=== PATIENT | female | born 1950 | race American Indian/Alaskan Native ===

== ENCOUNTER 2020-10-15 20:42 | Inpatient (IN) | payer OTHER ==
[2020-10-15 21:24] LABS: Absolute Lymphocytes (CBC) 1.5 K/uL (0.7-4.9); Basophils % 0.4 % (0-1.3); Hematocrit 29.8 % (36.0-45.0); Lymphocytes % 17.1 % (15.3-44.8); MPV 7.8 fL (7.6-11.3); RBC Red Blood Cell Count 3.26 M/uL (3.86-4.86)
[2020-10-15 21:27] LABS: Protime INR 1.02
--- NOTE | 2020-10-15 21:34 | RAD REPORT ---
EXAM DESCRIPTION: RAD - Chest Single View - 10/15/2020 9:29 pm CLINICAL HISTORY: Chest pain;SOB Chest pain. COMPARISON: No comparisons FINDINGS: Portable technique limits examination quality. Mild interstitial pulmonary edema noted, greater on the left. The heart is moderately enlarged. No di splaced fractures. IMPRESSION: Mild CHF suspected.
[2020-10-15 21:40] LABS: ALT/SGPT 26 U/L (12-78); AST/SGOT 31 U/L (15-37); Albumin 3.7 g/dL (3.4-5.0); Alkaline Phosphatase 65 U/L (45-117); BUN Blood Urea Nitrogen 39 mg/dL (7-18); Bicarbonate 24 mmol/L (21-32); Bilirubin Direct 0.1 mg/dL (0-0.2); Bilirubin Total 0.4 mg/dL (0.2-1.0); Glucose Level 175 mg/dL (74-106); Magnesium 2.7 mg/dL (1.8-2.4); NT PRO-BNP 7151 pg/mL (<125); Potassium 4.8 mmol/L (3.5-5.1); Protein, Total 8.4 g/dL (6.4-8.2); Sodium Level 135 mmol/L (136-145); Troponin (Emerg Dept Use Only) 0.19 ng/mL (0.0-0.045)
[2020-10-15 21:42] LABS: C-Reactive Protein < 2.90 mg/L (<3.00)
[2020-10-15 22:11] LABS: SARS-COV-2 RT PCR NEGATIVE (NEGATIVE)
[2020-10-15 22:17] LABS: Urine Blood TRACE (NEG); Urine Glucose NEGATIVE (NEG); Urine Protein 1+ (NEG)
--- NOTE | 2020-10-15 22:19 | EDPHYS ---
Physician Documentation [facility] Name: Dillon Rodriguez Age: 70 yrs Sex: Female : 1950 Arrival Date: 10/15/2020 Time: 20:43 Bed 17 Private MD: ED Physician Deejay Rosen HPI: 10/15 21:15 This 70 yrs old Other Female presents to ER via EMS with complaints of Shortness Of cp Breath. 21:15 The patient has shortness of breath at rest. cp 21:15 Onset: The symptoms/episode began/occurred today. cp 21:15 Duration: The symptoms are continuous, and are steadily getting worse. Associated signs cp and symptoms: Pertinent positives: chest pain, syncopal episode. Patient reports she started having chest pain today about 1730 while at home. Reports while walking to garage, she lost consciousness and awoke on ground. Patient unsure of length of time she was unconscious. Patient reports continued chest pain. Historical: - Allergies: 23:05 Fish Oil; sf - Home Meds: 23:05 Glipizide Oral [Active]; losartan oral oral [Active]; Simvastatin Oral [Active]; sf 23:15 Toujeo SoloStar subcutaneous subcutaneous [Active]; Tradjenta oral oral [Active]; sf - PMHx: 23:05 Anxiety; Hypertension; Diabetes - IDDM; sf - Social history:: Patient/guardian denies using alcohol, street drugs, tobacco products, Smoking status: Patient denies any tobacco usage or history of. ROS: 21:20 Constitutional: Negative for body aches, chills, fever, poor PO intake. cp 21:20 Eyes: Negative for injury, pain, redness, and discharge. cp 21:20 ENT: Negative for ear pain, sore throat, difficulty swallowing, difficulty handling secretions. 21:20 Cardiovascular: Positive for chest pain, Negative for edema, palpitations. 21:20 Respiratory: Positive for cough, "sounds productive", shortness of breath, at rest. 21:20 Abdomen/GI: Negative for abdominal pain, nausea, vomiting, and diarrhea, constipation, black/tarry stool, rectal bleeding. 21:20 Back: Negative for pain at rest, pain with movement. 21:20 Neuro: Positive for syncope, Negative for altered mental status, headache, weakness. 21:20 All other systems are negative. Exam: 21:07 ECG was reviewed by the Attending Physician. cp 21:25 Constitutional: The patient appears alert, awake, non-diaphoretic, non-toxic, well cp developed, well nourished, in obvious distress, mildly distressed. 21:25 Head/Face: Normocephalic, atraumatic. cp 21:25 Eyes: Periorbital structures: appear normal, Pupils: equal, round, and reactive to light and accomodation, Extraocular movements: intact throughout, Conjunctiva: normal, no exudate, no injection, Sclera: no appreciated abnormality, Lids and lashes: appear normal, bilaterally. 21:25 ENT: External ear(s): are unremarkable, Nose: is normal, Mouth: Lips: moist, Oral mucosa: moist, Posterior pharynx: Airway: no evidence of obstruction, patent. 21:25 Neck: C-spine: vertebral tenderness, is not appreciated, crepitus, is not appreciated. 21:25 Chest/axilla: Inspection: normal, Palpation: is normal, no crepitus, no tenderness. 21:25 Cardiovascular: Rate: normal, Rhythm: regular, Pulses: Pulses are 2+ in right radial artery and left radial artery. Edema: is not appreciated, JVD: is not appreciated. 21:25 Respiratory: the patient does not display signs of respiratory distress, Respirations: labored breathing, that is mild, intercostal retractions, are absent, shallow respirations, that is mild, Breath sounds: rales, that are mild, are heard diffusely, stridor, is not appreciated, wheezing: is not appreciated. 21:25 Abdomen/GI: Inspection: abdomen appears normal, Bowel sounds: active, all quadrants, Palpation: abdomen is soft and non-tender, in all quadrants. 21:25 Back: pain, is absent, ROM is normal. 21:25 Musculoskeletal/extremity: Exam is negative for decreased range of motion, deformity, injury. 21:25 Skin: no rash present. 21:25 Neuro: Orientation: to person, place \\T\\ time. Mentation: is normal, Cerebellar function: is grossly normal, Motor: moves all fours, strength is normal, Sensation: is normal. Vital Signs: 20:46 BP 154 / 99 Supine (auto/); Pulse 78 MON; Resp 22 S; Temp 98.7(O); Pulse Ox 90% on 4 sf lpm NC; 22:00 BP 135 / 73; Pulse 75; Resp 20; Pulse Ox 99% ; sf 22:40 Weight 72.12 kg (R); Height 5 ft. 4 in. (162.56 cm) (R); sf 23:30 BP 112 / 64; Pulse 67; Resp 20; Pulse Ox 100% ; sf 10/16 00:30 BP 105 / 59; Pulse 69; Resp 20; Pulse Ox 100% ; sf 01:00 BP 111 / 57; Pulse 67; Resp 20; Pulse Ox 100% 2 lpm ; sf 01:30 BP 118 / 70; Pulse 75; Resp 20; Pulse Ox 99% on 2 lpm NC; sf 02:30 BP 100 / 63; Pulse 57; Resp 18; Pulse Ox 100% ; sf 10/15 22:40 Body Mass Index 27.29 (72.12 kg, 162.56 cm) sf 02:30 sleeping sf MDM: 10/15 20:58 Patient medically screened. [facility] 22:30 Data reviewed: vital signs, nurses notes, lab test result(s), EKG, radiologic studies, cp plain films, I have discussed the patient's presentation/case with the attending Emergency Department Physician; and as a result, I will admit patient. 22:30 Test interpretation: by ED physician or midlevel provider: ECG, plain radiologic cp studies. Counseling: I had a detailed discussion with the patient and/or guardian regarding: the historical points, exam findings, and any diagnostic results supporting the discharge/admit diagnosis, lab results, radiology results, the need for further work-up and treatment in the hospital. Physician consultation: Eze HA was contacted at 22:30, regarding admission, to the telemetry unit. patient's condition, and will see patient in ED, shortly. 10/15 21:05 Order name: COVID-19 : Document "Date of Symptom Onset" if Symptomatic. 10/15 21:05 Order name: Basic Metabolic Panel; Complete Time: 21:43 cp 10/15 21:43 Interpretation: Normal except: NA 135; GLUC 175; BUN 39; CRE 1.80; GFR 28. cp 10/15 21:05 Order name: CBC with Diff; Complete Time: 21:41 cp 10/15 21:45 Interpretation: Normal except: RBC 3.26; HGB 10.2; HCT 29.8; NIA% 77.2. cp 02/ 21:05 Order name: LFT's; Complete Time: 21:43 cp / 21:05 Order name: Magnesium; Complete Time: 21:43 cp 10/15 21:05 Order name: NT PRO-BNP; Complete Time: 21:43 cp 10/15 21:05 Order name: PT-INR; Complete Time: 21:41 cp 10/15 21:05 Order name: Troponin (emerg Dept Use Only); Complete Time: 21:43 cp / 21:47 Interpretation: Abnormal: TROPED 0.19. cp / 21:05 Order name: CRP; Complete Time: 21:43 cp 10/15 21:05 Order name: Ferritin; Complete Time: 21:43 cp / 21:05 Order name: D-Dimer; Complete Time: 21:41 cp 10/15 21:05 Order name: Urine Microscopic Only; Complete Time: 22:40 cp 10/15 21:06 Order name: ABG; Complete Time: 04:39 cp / 22:08 Order name: Urine Dipstick--Ancillary (enter results) mw2 10/15 22:09 Order name: Urine Dipstick-Ancillary; Complete Time: 01:02 EDMS 10/15 22:11 Order name: COVID-19/FLU A+B EDMS 10/15 22:30 Order name: Urine Culture EDMS 10/16 05:02 Order name: CBC with Automated Diff EDMS 10/16 05:15 Order name: Troponin I EDMS 10/16 05:45 Order name: Comprehensive Metabolic Panel EDMS 10/16 05:45 Order name: Uric Acid EDMS 10/16 05:45 Order name: Creatine Phosphokinase EDMS 10/16 05:45 Order name: Lipid Profile EDMS 10/16 05:45 Order name: T4 Free EDMS 10/16 05:45 Order name: Magnesium EDMS 10/16 05:45 Order name: Thyroid Stimulating Hormone EDMS 10/16 06:10 Order name: Hemoglobin A1c EDMS 10/16 08:57 Order name: Glucose, Ancillary Testing EDMS 10/15 21:05 Order name: XRAY Chest (1 view); Complete Time: 21:41 cp 02/04 21:05 Order name: EKG; Complete Time: 21:07 cp 02 21:05 Order name: Cardiac monitoring; Complete Time: 21:51 cp 02 21:05 Order name: EKG - Nurse/Tech; Complete Time: 21:51 cp 02 21:05 Order name: IV Saline Lock; Complete Time: 21:51 cp 02 21:05 Order name: Labs collected and sent; Complete Time: 21:51 cp 10/15 21:05 Order name: O2 Per Protocol; Complete Time: 21:51 cp 10/15 21:05 Order name: O2 Sat Monitoring; Complete Time: 21:51 cp 02 21:05 Order name: Urine Dipstick-Ancillary (obtain specimen); Complete Time: 22:11 cp 02 22:40 Order name: Gardner; Complete Time: 23:56 la1 10/16 08:54 Order name: US EDMS 10/16 12:11 Order name: Glucose, Ancillary Testing EDMS 10/16 15:08 Order name: Troponin I EDMS 10/16 17:20 Order name: Glucose, Ancillary Testing EDMS EC:07 Rate is 80 beats/min. Rhythm is regular. MS interval is prolonged at 236 msec. QRS cp interval is normal. QT interval is normal. T waves are Inverted in leads aVL, aVR, V2. Interpreted by me. Reviewed by me. Administered Medications: 21:43 CANCELLED (Physician Discretion): Nitroglycerin 0.4 mg Sublingual once cp 22:19 CANCELLED (Physician Discretion): SOLU-Medrol 125 mg IVP once cp 22:33 Drug: Aspirin Chewable Tablet 324 mg Route: PO; sf 23:56 Follow up: Response: No adverse reaction sf 22:34 Drug: PlaVIX 300 mg Route: PO; sf 23:56 Follow up: Response: No adverse reaction sf 22:35 Drug: Lasix 20 mg Route: IVP; Site: left forearm; sf 23:56 Follow up: Response: No adverse reaction sf 22:44 Drug: Lovenox 1 mg/kg Route: Sub-Q; Site: right upper abdomen; sf 23:56 Follow up: Response: No adverse reaction sf Disposition: 10/15/20 22:18 Hospitalization ordered by Julio Moraes for Inpatient Admission. Preliminary diagnosis are Non-ST elevation (NSTEMI) myocardial infarction, Unspecified combined systolic (congestive) and diastolic (congestive) heart failure, Syncope and collapse. - Bed requested for Telemetry/MedSurg (Inpatient). - Status is Inpatient Admission. iw - Condition is Fair. - Problem is new. - Symptoms have improved. Addendum: 10/19/2020 06:09 Co-signature as Attending Physician, Deejay Rosen MD I agree with the assessment and c strange plan of care. Signatures: Dispatcher [employer] EDNJ Karlee Schofield, Deejay Avelar RN, MD MD cha Williams, Irene RN RN iw Eze Atwood, SCRATCHER TENDER-C SCRATCHER TENDER-Cla1 Deejay Purcell PA PA cp Alice Pereira, GERDA LORENZ Abiola Muniz Steven RN RN sf Corrections: (The following items were deleted from the chart) 10/15 21:26 21:06 CORONAVIRUS ordered. EDNJ EDNJ 21:26 21:06 Influenza Screen (A \\T\\ B)+BA.LAB.BRZ ordered. EDNJ EDNJ 21:43 21:06 Nitroglycerin 0.4 mg Sublingual once ordered. cp cp 21:49 21:43 Chest For PE Angio+CT.RAD.BRZ ordered. EDNJ EDMS 22:19 21:06 SOLU-Medrol 125 mg IVP once ordered. cp cp 23:24 22:18 Hospitalization Ordered by Julio Moraes DO for Inpatient Admission. Preliminary cp diagnosis is Non-ST elevation (NSTEMI) myocardial infarction; Unspecified combined systolic (congestive) and diastolic (congestive) heart failure. Bed requested for Telemetry/MedSurg (Inpatient). Status is Inpatient Admission. Condition is Fair. Problem is new. Symptoms have improved. cp 23:37 23:24 10/15/2020 22:18 Hospitalization Ordered by Julio Moraes DO for Inpatient cg Admission. Preliminary diagnosis is Non-ST elevation (NSTEMI) myocardial infarction; Unspecified combined systolic (congestive) and diastolic (congestive) heart failure; Syncope and collapse. Bed requested for Telemetry/MedSurg (Inpatient). Status is Inpatient Admission. Condition is Fair. Problem is new. Symptoms have improved. cp 10/16 16:23 10/15 23:37 10/15/2020 22:18 Hospitalization Ordered by Julio Moraes DO for Inpatient eb Admission. Preliminary diagnosis is Non-ST elevation (NSTEMI) myocardial infarction; Unspecified combined systolic (congestive) and diastolic (congestive) heart failure; Syncope and collapse. Bed requested for [facility] ER HOLD. Status is Inpatient Admission. Condition is Fair. Problem is new. Symptoms have improved. cg 02 16:23 16:23 10/15/2020 22:18 Hospitalization Ordered by Julio Moraes DO for Inpatient dw Admission. Preliminary diagnosis is Non-ST elevation (NSTEMI) myocardial infarction; Unspecified combined systolic (congestive) and diastolic (congestive) heart failure; Syncope and collapse. Bed requested for Telemetry/MedSurg (Inpatient). Status is Inpatient Admission. Condition is Fair. Problem is new. Symptoms have improved. eb 18:31 10/15 21:15 Patient reports she started having chest pain today about 1730 while at home. Reports while walking to garage, she lost consciousness and awoke on ground. 10/16 18:55 16:23 10/15/2020 22:18 Hospitalization Ordered by Julio Moraes DO for Inpatient iw Admission. Preliminary diagnosis is Non-ST elevation (NSTEMI) myocardial infarction; Unspecified combined systolic (congestive) and diastolic (congestive) heart failure; Syncope and collapse. Bed requested for Telemetry/MedSurg (Inpatient). Status is Inpatient Admission. Condition is Fair. Problem is new. Symptoms have improved. dw
--- NOTE | 2020-10-15 22:19 | ER ---
Nurse's Notes [facility] Name: Dillon Rodriguez Age: 70 yrs Sex: Female : 1950 Arrival Date: 10/15/2020 Time: 20:43 Bed 17 Private MD: Diagnosis: Non-ST elevation (NSTEMI) myocardial infarction;Unspecified combined systolic (congestive) and diastolic (congestive) heart failure;Syncope and collapse Presentation: 10/15 20:46 Chief complaint: EMS states: Patient had syncopal episode at about 1730. Patient sf reportedly walked out to garage and passed out. Woke up 2 hours later. Having nausea and vomiting with left chest pain non-radiating, /10. EMS vitals: 138/83, rate 80, temp 98.6, FSB, was 89% RA, put on 3lpm n/c and increased to 100%. Initial Sepsis Screen: Does the patient meet any 2 criteria? RR > 20 per min. No. Patient's initial sepsis screen is negative. Does the patient have a suspected source of infection?. Risk Assessment: Do you want to hurt yourself or someone else? Unable to obtain. Onset of symptoms was October 15, 2020 at 17:30. Care prior to arrival: None. Activity prior to arrival:. 20:46 Method Of Arrival: EMS: [facility] 20:46 Acuity: MARK 2 sf 23:22 Coronavirus screen: Client denies travel out of the [place] in the last 14 days. Client sf presents with at least one sign or symptom that may indicate coronavirus-19. Standard/surgical mask placed on the client. Provider contacted for isolation considerations. Ebola Screen: Patient negative for fever greater than or equal to 101.5 degrees Fahrenheit, and additional compatible Ebola Virus Disease symptoms Patient denies exposure to infectious person. Patient denies travel to an Ebola-affected area in the 21 days before illness onset. No symptoms or risks identified at this time. Historical: - Allergies: 23:05 Fish Oil; sf - Home Meds: 23:05 Glipizide Oral [Active]; losartan oral oral [Active]; Simvastatin Oral [Active]; sf 23:15 Toujeo SoloStar subcutaneous subcutaneous [Active]; Tradjenta oral oral [Active]; sf - PMHx: 23:05 Anxiety; Hypertension; Diabetes - IDDM; sf - Social history:: Patient/guardian denies using alcohol, street drugs, tobacco products, Smoking status: Patient denies any tobacco usage or history of. Screenin:21 Abuse screen: Denies threats or abuse. Nutritional screening: No deficits noted. sf Tuberculosis screening: No symptoms or risk factors identified. Fall Risk Fall in past 12 months (25 points). No secondary diagnosis (0 pts). IV access (20 points). Ambulatory Aid- None/Bed Rest/Nurse Assist (0 pts). Gait- Normal/Bed Rest/Wheelchair (0 pts) Mental Status- Oriented to own ability (0 pts). Total Arguello Fall Scale indicates No Risk (0-24 pts). Sepsis Screening: . Infection: Patient has no suspected or documented infection. Exposure risk/Travel Screening: None identified. Assessment: 20:46 General: Appears in no apparent distress. comfortable, well groomed, Behavior is calm, sf cooperative, appropriate for age. Pain: Complains of pain in anterior aspect of left upper chest Pain does not radiate. Pain currently is 10 out of 10 on a pain scale. Neuro: Level of Consciousness is awake, alert, obeys commands, Oriented to person, place, time, situation, Appropriate for age. Cardiovascular: Reports chest pain, Capillary refill Patient's skin is warm and dry. Rhythm is regular. Respiratory: Reports shortness of breath Airway is patent Respiratory effort is even, Respiratory pattern is regular, Breath sounds are clear bilaterally. 23:19 Reassessment: Patient taken off BiPap and placed on 2LPM by N/C by ROSA MARIA Loo (Hospitalist group). 10/16 01:28 Reassessment: Patient appears in no apparent distress at this time. No changes from sf previously documented assessment. Patient and/or family updated on plan of care and expected duration. Pain level reassessed. Patient is alert, oriented x 3, equal unlabored respirations, skin warm/dry/pink. Patient given turkey sandwich and water per request. Assistant Professor used, patient denies pain, reports feeling much better. Patient denies pain at this time. Patient states feeling better. 04:34 Reassessment: Patient appears in no apparent distress at this time. No changes from sf previously documented assessment. Patient and/or family updated on plan of care and expected duration. Pain level reassessed. Patient is alert, oriented x 3, equal unlabored respirations, skin warm/dry/pink. Patient denies pain at this time. Patient states feeling better. Patient states symptoms have improved. Reassessment: SpO2 noted to be 100% on 2 LPM via N/C. Oxygen decreased to 1 LPM by N/C. Morning labs drawn. Vital Signs: 10/15 20:46 BP 154 / 99 Supine (auto/); Pulse 78 MON; Resp 22 S; Temp 98.7(O); Pulse Ox 90% on 4 sf lpm NC; 22:00 BP 135 / 73; Pulse 75; Resp 20; Pulse Ox 99% ; sf 22:40 Weight 72.12 kg (R); Height 5 ft. 4 in. (162.56 cm) (R); sf 23:30 BP 112 / 64; Pulse 67; Resp 20; Pulse Ox 100% ; sf 10/16 00:30 BP 105 / 59; Pulse 69; Resp 20; Pulse Ox 100% ; sf 01:00 BP 111 / 57; Pulse 67; Resp 20; Pulse Ox 100% 2 lpm ; sf 01:30 BP 118 / 70; Pulse 75; Resp 20; Pulse Ox 99% on 2 lpm NC; sf 02:30 BP 100 / 63; Pulse 57; Resp 18; Pulse Ox 100% ; sf 04 22:40 Body Mass Index 27.29 (72.12 kg, 162.56 cm) sf 02:30 sleeping sf Vitals: 02:30 Cardiac Rhythm Assessment Sinus jillian. sf ED Course: 10/15 20:30 Patient has correct armband on for positive identification. Placed in gown. Bed in low sf position. Call light in reach. Side rails up X2. 20:43 Patient arrived in ED. sg 20:46 Virgilio Story RN is Primary Nurse. sf 20:46 Deejay Purcell PA is PHCP. cp 20:46 Deejay Rosen MD is Attending Physician. cp 20:54 Triage completed. sf 21:01 Inserted saline lock: 20 gauge in left forearm, using aseptic technique. Oxygen ea administration via nasal cannula \T\ 5L/min. 21:29 XRAY Chest (1 view) In Process Unspecified. EDMS 22:17 Prezas, Julio, DO is Hospitalizing Provider. cp 22:50 Gardner cath inserted, using sterile technique, 16 Fr., by ms, balloon inflated, to gravity drainage, returned clear yellow urine. Patient tolerated well. 23:57 Urine Dipstick--Ancillary (enter results) Sent. 02 04:35 Repeat lab(s) drawn. by ms, sent to lab. 16:48 No provider procedures requiring assistance completed. Patient admitted, IV remains in bp place. Administered Medications: 10/15 21:43 CANCELLED (Physician Discretion): Nitroglycerin 0.4 mg Sublingual once cp 22:19 CANCELLED (Physician Discretion): SOLU-Medrol 125 mg IVP once cp 22:33 Drug: Aspirin Chewable Tablet 324 mg Route: PO; sf 23:56 Follow up: Response: No adverse reaction sf 22:34 Drug: PlaVIX 300 mg Route: PO; sf 23:56 Follow up: Response: No adverse reaction sf 22:35 Drug: Lasix 20 mg Route: IVP; Site: left forearm; sf 23:56 Follow up: Response: No adverse reaction sf 22:44 Drug: Lovenox 1 mg/kg Route: Sub-Q; Site: right upper abdomen; sf 23:56 Follow up: Response: No adverse reaction sf Output: 10/16 01:27 Urine: 950ml (Gardner); Total: 950ml. sf Outcome: 10/15 22:18 Decision to Hospitalize by Provider. 02/ 16:48 Admitted to Med/surg bp Condition: stable Instructed on the need for admit. 18:55 Patient left the ED. iw Signatures: Dispatcher [facility] EDMS Virgilio Biggs RN RN sg Williams, Irene, RN RN iw Deejay Purcell PA PA cp Feli Almeida RN RN ea Peltier, Brian, RN RN bp Virgilio Story RN RN sf Corrections: (The following items were deleted from the chart) 10/15 22:59 22:44 Lovenox 1 mg/kg Sub-Q in right upper abdomen [facility] 02 03:03 03:02 Respiratory: sf 03:04 0204 20:46 Chief complaint: EMS states: Patient had syncopal episode at about 1730. sf Patient reportedly walked out to garage and passed out. Woke up 2 hours later. Having nausea and vomiting with left chest pain non-radiating, 06/20. EMS vitals: 138/83, rate 80, temp 98.6, FSB, was 89% RA, put on 3lpm n/c and increased to 100%. sf 10/16 03:08 02:30 BP 100 / 63; Pulse 57bpm; Resp 18bpm; Pulse Ox 100%; sleeping; sf sf 04:35 04:34 Reassessment: SpO2 noted to be 100% on 2 LPM via N/C. Oxygen decreased to 1 LPM sf by N/C. sf
[2020-10-15 22:29] LABS: Urine Bacteria <20 /HPF (<20)
[2020-10-15 22:44] LABS: Arterial Blood Carboxyhemoglob 1.2 % (0-1.5); Blood Gas Oxyhemoglobin 95.8 % (94-97); Blood O2 Saturation 97.9 % (92-98.5)
[2020-10-15] MEDS ORDERED: CLOPIDOGREL 75 MG TABLET ONE (22:46)
[2020-10-15] MEDS ORDERED: ASPIRIN 81 MG CHEWABLE TABLET ONE (22:46)
[2020-10-15] MEDS ORDERED: FUROSEMIDE 20 MG/ 2ML VIAL ONE (22:47)
[2020-10-15] MEDS ORDERED: ENOXAPARIN 80 MG/0.8 ML SQ ONE (23:00)
--- NOTE | 2020-10-15 23:02 | P.HP ---
Certification for Inpatient Patient admitted to: Inpatient With expected LOS: >2 Midnights Patient will require the following post-hospital care: None Practitioner: I am a practitioner with admitting privileges, knowledge of patient current condition, hospital course, and medical plan of care. Services: Services provided to patient in accordance with Admission requirements found in Title 42 Section 412.3 of the Code of Federal Regulations <[email or web address] - Last Filed: 10/15/20 22:54> Patient admitted to: Inpatient <Julio Moraes - Last Filed: 10/16/20 11:01> Patient History Date of Service: 10/15/20 Primary Care Provider: Dr. Brumfield Reason for admission: NSTEMI History of Present Illness: 70-year-old female with history of hypertension, hyperlipidemia, diabetes mellitus type 2, unknown valve issue presents emergency department for chest pain, syncope. Patient reports that she has been having intermittent chest pain over the course of the last 1 month, worse yesterday and then today. Patient reports she is going out to the garage had onset of chest pain, shortness of breath and had syncopal episode where she did lose consciousness. Patient was not responsive for unknown period time, found by her family and brought to the emergency department. Upon arrival to the emergency department patient was awake, alert, oriented x3 complaining of 10/10 chest pain, patient reports pain feels like being punched in the chest, nonradiating associated with shortness of breath. Patient was evaluated in the emergency department found to have NSTEMI, troponin elevated to 0.19 BNP 7151 chest x-ray significant for mild CHF. Creatinine 1.8 GFR 28, BUN 39, no labs available for comparison but patient does report some chronic kidney disease. Case was discussed with cardiology recommends full-dose Lovenox, admission, diuresis as needed, echocardiogram in the morning. Will make NPO after midnight. - Past Medical/Surgical History -: Diabetes mellitus type 2 -: Hypertension -: Hyperlipidemia -: Chronic kidney disease -: none Psychosocial/ Personal History: Patient is retired, lives at home with her son - Family History Mother -: Heart disease - Social History Smoking Status: Never smoker Alcohol use: No CD- Drugs: No Caffeine use: Yes Place of Residence: Home <Eze Atwood - Last Filed: 10/15/20 22:54> Date of Service: 10/16/20 <Jluio Moraes - Last Filed: 10/16/20 11:01> Review of Systems 10-point ROS is otherwise unremarkable Respiratory: Shortness of Breath, SOB with Excertion Cardiovascular: Chest Pain, Light Headedness, Other (Syncope), As per HPI <Eze Atwood - Last Filed: 10/15/20 22:54> Physical Examination - Physical Exam General: Alert, In no apparent distress, Oriented x3 HEENT: Atraumatic, Normocephalic, Mucous membr. moist/pink Neck: 2+ carotid pulse no bruit Respiratory: Crackles/rales (Bilateral bases) Cardiovascular: No edema, Normal pulses, Normal S1 S2, Systolic murmur (Grade 3/5 systolic murmur heard greatest over the aortic listening area) Capillary refill: <2 Seconds Gastrointestinal: Normal bowel sounds Musculoskeletal: No contractures, No erythema, No tenderness Integumentary: No tenderness/swelling, No erythema, No warmth Neurological: Normal speech, Normal strength at 5/5 x4 extr, Normal tone, Sensation intact - Studies Laboratory Data (last 24 hrs) 10/15/20 21:10: PT 11.7, INR 1.02 10/15/20 21:10: WBC 8.50, Hgb 10.2 L, Hct 29.8 L, Plt Count 173 10/15/20 21:10: Sodium 135 L, Potassium 4.8, BUN 39 H, Creatinine 1.80 H, Glucose 175 H, Magnesium 2.7 H, Total Bilirubin 0.4, AST 31, ALT 26, Alkaline Phosphatase 65 <Eze Atwood - Last Filed: 10/15/20 22:54> - Studies Laboratory Data (last 24 hrs) 10/15/20 21:10: PT 11.7, INR 1.02 10/15/20 21:10: WBC 8.50, Hgb 10.2 L, Hct 29.8 L, Plt Count 173 10/15/20 21:10: Sodium 135 L, Potassium 4.8, BUN 39 H, Creatinine 1.80 H, Glucose 175 H, Magnesium 2.7 H, Total Bilirubin 0.4, AST 31, ALT 26, Alkaline Phosphatase 65 <Julio Moraes - Last Filed: 10/16/20 11:01> Assessment and Plan - Plan Assessment NSTEMI New onset heart failure with grade 3/5 systolic murmur Chronic kidney disease Hypertension Diabetes mellitus type 2 Hyperlipidemia Plan NSTEMI: Full-dose Lovenox, monitor on telemetry, trend troponins, bedrest. Case discussed with cardiology. Loaded with Plavix, aspirin in the emergency d epartment. Possibly demand ischemia with new onset heart failure, will need to trend troponins. Full-dose Lovenox for DVT prophylaxis. Appreciate further input from cardiology. Diuresis as necessary. New onset heart failure with grade 3/5 systolic murmur: Case discussed with cardiology, echocardiogram ordered. Continue with diuresis as necessary. No echo available for comparison, patient does report a history of problem with an unknown valve, was informed to make lifestyle changes but no surgical intervention was performed. Chronic kidney disease: Unknown baseline renal function, patient does report knowing that she has Weak kidneys. Will consult nephrology, obtain renal ultrasound, CPK, uric acid levels. Hypertension: Obtain and continue home medications as appropriate, may need to adjust. Diabetes mellitus type 2: A.c. HS Accu-Cheks and sliding scale insulin therapy. A1c with morning labs. Hyperlipidemia: Obtain and continue home medications. Discharge Plan: Home Plan to discharge in: 72 Hours - Advance Directives Does patient have a Living Will: No Does patient have a Durable POA for Healthcare: No - Code Status/Comfort Care Code Status Assessed: Yes (Full code) Critical Care: No Time Spent Managing Pts Care (In Minutes): 55 <Eze Atwood - Last Filed: 10/15/20 22:54> - Plan Case discussed with nurse practitioner. Agree with plan of care. Please see note for details. <Julio Moraes - Last Filed: 10/16/20 11:01>
[2020-10-16] MEDS ORDERED: ACETAMINOPHEN 500 MG TAB PO PRN (00:52)
[2020-10-16] MEDS ORDERED: MORPHINE 2 MG/ML SYR IV PRN (00:52)
[2020-10-16] MEDS ORDERED: ONDANSETRON 4 MG/2 ML VIAL IV PRN (00:52)
[2020-10-16 04:40] LABS: Absolute Lymphocytes (CBC) 1.6 K/uL (0.7-4.9); Basophils % 0.9 % (0-1.3); Hematocrit 26.6 % (36.0-45.0); Lymphocytes % 20.6 % (15.3-44.8); MPV 7.8 fL (7.6-11.3)
[2020-10-16 04:59] VITALS: BMI 26.9
[2020-10-16 05:21] LABS: Albumin 3.2 g/dL (3.4-5.0); Bilirubin Total 0.4 mg/dL (0.2-1.0); Magnesium 2.6 mg/dL (1.8-2.4); Potassium 4.5 mmol/L (3.5-5.1); Protein, Total 7.3 g/dL (6.4-8.2); Thyroid Stimulating Hormone 0.38 uIU/mL (0.360-3.740); Uric Acid 8.3 mg/dL (2.6-6.0)
[2020-10-16] MEDS: INSULIN -REGULAR HUMAN 50 UNIT/0.5 ML ML SQ SCH ×3 (07:30→16:30)
--- NOTE | 2020-10-16 08:54 | RAD REPORT ---
EXAM DESCRIPTION: US - Renal Ultrasound-Complete - 10/16/2020 8:25 am CLINICAL HISTORY: nandini/ckd? COMPARISON: No comparisons FINDINGS: The right kidney measures 8.8 x 4.0 x 4.6 cm. The left kidney measures 9.0 x 4.8 x 4.7 cm . Slight cortical thinning noted in each kidney. There is increased echogenicity of the renal parench yma. No hydronephrosis or suspicious renal mass. Urinary bladder is fully contracted around a Gardner catheter. IMPRESSION: Bilateral medical renal disease is evident with no hydronephrosis or suspicious mass.
[2020-10-16] MEDS ORDERED: ENOXAPARIN 80 MG/0.8 ML SQ SCH (09:00)
[2020-10-16] MEDS ORDERED: CLOPIDOGREL 75 MG TABLET PO SCH (09:00)
[2020-10-16] MEDS ORDERED: ASPIRIN EC 81 MG TAB PO SCH (09:00)
[2020-10-16] MEDS: FUROSEMIDE 20 MG/ 2ML VIAL IV SCH ×2 (09:00→17:00)
[2020-10-16] MEDS ORDERED: CLOPIDOGREL 75 MG TABLET ONE (09:10)
[2020-10-16] MEDS ORDERED: FUROSEMIDE 20 MG/ 2ML VIAL ONE ×2 (09:10→12:12)
[2020-10-16] MEDS ORDERED: ASPIRIN EC 81 MG TAB PO ONE (09:10)
[2020-10-16] MEDS ORDERED: ENOXAPARIN 80 MG/0.8 ML SQ ONE (09:11)
--- NOTE | 2020-10-16 09:28 | P.PN ---
Subjective Date of Service: 10/16/20 Primary Care Provider: Dr. Brumfield Chief Complaint: NSTEMI Subjective: Improving (chest pain is improved. BP stable at 124/94.) Physical Examination - Vital Signs Blood Pressure: 91/62 Pulse: 52 Respirations: 18 Pulse Ox (%): 100 - Physical Exam General: Alert, In no apparent distress, Oriented x3, Cooperative HEENT: Atraumatic Neck: Supple Respiratory: Clear to auscultation bilaterally, Normal air movement Cardiovascular: Normal pulses, Regular rate/rhythm, Systolic murmur Gastrointestinal: Normal bowel sounds, No tenderness, No masses, No rebound, No guarding - Studies Laboratory Data (last 24 hrs) 10/15/20 21:10: PT 11.7, INR 1.02 10/15/20 21:10: WBC 8.50, Hgb 10.2 L, Hct 29.8 L, Plt Count 173 10/15/20 21:10: Sodium 135 L, Potassium 4.8, BUN 39 H, Creatinine 1.80 H, Glucose 175 H, Magnesium 2.7 H, Total Bilirubin 0.4, AST 31, ALT 26, Alkaline Phosphatase 65 Assessment & Plan Discharge Plan: Transfer Plan to discharge in: 72 Hours Physician Review Additional Text: Impression: Chest pain with elevated troponin secondary to NSTEMI suspect underlying CAD Acute on chronic systolic heart failure with grade 3/5 systolic murmur Chronic kidney disease Hypertension Diabetes mellitus type 2 Hyperlipidemia Plan Chest pain with elevated troponin secondary to NSTEMI suspect underlying CAD: Patient stable this time. Chest pain improved. Currently on full-dose Lovenox, aspirin, Lipitor and Plavix. Continue to monitor on telemetry. Will discuss with cardiology. Anticipate need for heart catheterization to further evaluate. Patient with underlying chronic renal disease. This will need to be considered in anticipation for heart catheterization. We currently have no available beds and no availability to heart catheterization today. Therefore will transfer patient to [place] to further address. This was discussed with patient and son who agree with plan of care. Will also discuss with cardiology and nephrology. Anticipate transfer today. Patient stable for transfer. Acute on chronic systolic with grade 3/5 systolic murmur: Echocardiogram ordered but not available today. Continue IV Lasix 20 mg twice daily. Chronic kidney disease: Renal ultrasound shows chronic kidney disease. Suspect underlying chronic kidney disease. Nephrology consulted. Await recommendations. May need to be evaluated prior to possible future heart catheterization. Hypertension: Blood pressure stable at this time without medication. Will monitor closely. If elevated will start metoprolol. Diabetes mellitus type 2: A1c 6.5. Continue Accu-Cheks and sliding scale Hyperlipidemia: Lipitor 40 mg started. Time Spent Managing Pts Care (In Minutes): 55
[2020-10-16 18:12] VITALS: O2SAT 98
--- NOTE | 2020-10-16 20:53 | P.CNS ---
Date of Consult: 10/16/20 Reason for Consult: MELANIE/ CKD Requesting Physician: Julio Moraes Primary Care Provider: Dr. Brumfield Chief Complaint: NSTEMI History of Present Illness: 70-year-old female with history of hypertension, hyperlipidemia, diabetes mellitus type 2, unknown valve issue presents emergency department for chest pain, syncope. Patient reports that she has been having intermittent chest pain over the course of the last 1 month, worse yesterday and then today. Patient reports she is going out to the garage had onset of chest pain, shortness of breath and had syncopal episode where she did lose consciousness. Patient was not responsive for unknown period time, found by her family and brought to the emergency department. Upon arrival to the emergency department patient was awake, alert, oriented x3 complaining of 10/10 chest pain, patient reports pain feels like being punched in the chest, nonradiating associated with shortness of breath. Patient was evaluated in the emergency department found to have NSTEMI, troponin elevated to 0.19 BNP 7151 chest x-ray significant for mild CHF. Creatinine 1.8 GFR 28, BUN 39, no labs available for comparison but patient does report some chronic kidney disease. Case was discussed with cardiology recommends full-dose Lovenox, admission, diuresis as needed, echocardiogram in the morning. 21:15 This 70 yrs old Other Female presents to ER via EMS with complaints of Shortness Of cp Breath. 21:15 The patient has shortness of breath at rest. cp 21:15 Onset: The symptoms/episode began/occurred today. cp 21:15 Duration: The symptoms are continuous, and are steadily getting worse. Associated signs cp and symptoms: Pertinent positives: chest pain, syncopal episode. Patient reports she started having chest pain today about 1730 while at home. Reports while walking to garage, she lost consciousness and awoke on ground. Patient unsure of length of time she was unconscious. Patient reports continued chest pain. Allergies fish oil Allergy (Verified 10/16/20 00:52) Itching/Hives/Rash - Past Medical/Surgical History Diabetic: Yes -: Diabetes mellitus type 2 -: Hypertension -: Hyperlipidemia -: Chronic kidney disease -: none Psychosocial/ Personal History: Patient is retired, lives at home with her son - Family History Mother Medical History: Heart disease - Social History Alcohol use: No CD- Drugs: No Caffeine use: Yes Place of Residence: Home Physical Examination Temp Pulse Resp BP Pulse Ox 97.8 F 62 17 91/65 99 10/16/20 12:00 10/16/20 16:00 10/16/20 16:00 10/16/20 16:00 10/16/20 16:00 General: In no apparent distress, Oriented x3, Cooperative HEENT: Atraumatic Neck: Supple Laboratory Data (last 24 hrs) 10/15/20 21:10: PT 11.7, INR 1.02 10/15/20 21:10: WBC 8.50, Hgb 10.2 L, Hct 29.8 L, Plt Count 173 10/15/20 21:10: Sodium 135 L, Potassium 4.8, BUN 39 H, Creatinine 1.80 H, Glucose 175 H, Magnesium 2.7 H, Total Bilirubin 0.4, AST 31, ALT 26, Alkaline Phosphatase 65 Imagings Data: EXAM DESCRIPTION: RAD - Chest Single View - 10/15/2020 9:29 pm CLINICAL HISTORY: Chest pain;SOB Chest pain. COMPARISON: No comparisons FINDINGS: Portable technique limits examination quality. Mild interstitial pulmonary edema noted, greater on the left. The heart is moderately enlarged. No displaced fractures. IMPRESSION: Mild CHF suspected. EXAM DESCRIPTION: US - Renal Ultrasound-Complete - 10/16/2020 8:25 am CLINICAL HISTORY: melanie/ckd? COMPARISON: No comparisons FINDINGS: The right kidney measures 8.8 x 4.0 x 4.6 cm. The left kidney m easures 9.0 x 4.8 x 4.7 cm. Slight cortical thinning noted in each kidney. There is increased echogenicity of the renal parenchyma. No hydronephrosis or suspicious renal mass. Urinary bladder is fully contracted around a Gardner catheter. IMPRESSION: Bilateral medical renal disease is evident with no hydronephrosis or suspicious mass. Conclusions/Impression: A/P MELANIE likely CRS complicated by hypotension CKD III with proteinuria -Continue Lasix -Continue Gardner -No NSAIDs -Renal US reviewed Hypervolemic Hyponatremia -Continue Lasix HTN with CKD/ CHF complicated by hypotension -Hold antihypertensive therapy A/C Systolic CHF -Continue Lasix -Low sodium diet DM II with CKD -RISS Anemia in chronic illness -Check iron, b12 and folic acid levels -Transfuse PRBC as needed AM labs. Daily weight.
[2020-10-16] MEDS ORDERED: ATORVASTATIN 40 MG TAB PO SCH (21:00)
[2020-10-16 21:32] VITALS: BP 107/53; TEMP 98.3
--- NOTE | 2020-10-17 00:12 | P.DS ---
Admission Date: 10/15/20 Discharge Date: 10/17/20 Primary Care Provider: Dr. Brumfield Disposition[facility] Discharge Condition: FAIR Reason for Admission: NSTEMI Consultations: cardiology- Dr. Chi Nephrology- Dr. Thompson Procedures: Chest x-ray Mild interstitial pulmonary edema noted, greater on the left. The heart is moderately enlarged. No displaced fractures. IMPRESSION: Mild CHF suspected. Renal ultrasound FINDINGS: The right kidney measures 8.8 x 4.0 x 4.6 cm. The left kidney measures 9.0 x 4.8 x 4.7 cm. Slight cortical thinning noted in each kidney. There is increased echogenicity of the renal parenchyma. No hydronephrosis or suspicious renal mass. Urinary bladder is fully contracted around a Gardner catheter. IMPRESSION: Bilateral medical renal disease is evident with no hydronephrosis or suspicious mass Medical problem list Chest pain, syncope, NSTEMI secondary to critical aortic stenosis Acute on chronic systolic heart failure Chronic kidney disease Hypertension Diabetes mellitus type 2 Hyperlipidemia Brief History of Present Illness: 70-year-old female with history of hypertension, hyperlipidemia, diabetes mellitus type 2, unknown valve issue presents emergency department for chest pain, syncope. Patient reports that she has been having intermittent chest pain over the course of the last 1 month, worse yesterday and then today. Patient reports she is going out to the garage had onset of chest pain, shortness of breath and had syncopal episode where she did lose consciousness. Patient was not responsive for unknown period time, found by her family and brought to the emergency department. Upon arrival to the emergency department patient was adeola ke, alert, oriented x3 complaining of 10/10 chest pain, patient reports pain feels like being punched in the chest, nonradiating associated with shortness of breath. Patient was evaluated in the emergency department found to have NSTEMI, troponin elevated to 0.19 BNP 7151 chest x-ray significant for mild CHF. Creatinine 1.8 GFR 28, BUN 39, no labs available for comparison but patient does report some chronic kidney disease. Case was discussed with cardiology recommends full-dose Lovenox, admission, diuresis as needed, echocardiogram in the morning. Will make NPO after midnight. Hospital Course: Patient was admitted overnight for NSTEMI Initial troponin 0.19, repeat troponins 0.19 up to 0.28. Patient initially found to be in acute on chronic systolic heart failure, patient was given IV diuresis with Lasix and Gardner catheter was placed. Patient was diuresed, began breathing better, tolerated nasal cannula. Patient also with history of chronic kidney disease which remained stable. Patient was evaluated by cardiology during her hospitalization and found to have critical aortic stenosis, for this reason cardiology arrange for transfer to [facility] for intervention. At discharge patient was awake, alert, chest pain had improved measures in blood pressure documented 107/53, heart rate 62 temp to 98.3 respiratory rate 16 97% on 2 L per nasal ca nnula. Patient will need to continue chronic care at receiving facility. Vital Signs/Physical Exam: Temp Pulse Resp BP Pulse Ox 98.3 F 62 18 107/53 L 97 10/16/20 20:00 10/16/20 20:00 10/16/20 20:00 10/16/20 20:00 10/16/20 20:00 General: Alert, In no apparent distress, Oriented x3 HEENT: Atraumatic, Normocephalic Neck: Supple Respiratory: Clear to auscultation bilaterally, Diminished Cardiovascular: Regular rate/rhythm, Systolic murmur (Grade 3/5 systolic murmur aortic listening area) Capillary refill: <2 Seconds Gastrointestinal: Normal bowel sounds, No tenderness, No masses, No rebound Musculoskeletal: No contractures, No erythema, No tenderness Integumentary: No significant lesion, No tenderness/swelling Neurological: Normal speech, Normal strength at 5/5 x4 extr, Normal tone Laboratory Data at Discharge: WBC 7.70 K/uL (4.3-10.9) 10/16/20 04:25 Hgb 8.8 g/dL (12.0-15.0) L 10/16/20 04:25 Hct 26.6 % (36.0-45.0) L 10/16/20 04:25 Plt Count 159 K/uL (152-406) 10/16/20 04:25 PT 11.7 SECONDS (9.5-12.5) 10/15/20 21:10 INR 1.02 10/15/20 21:10 Sodium 135 mmol/L (136-145) L 10/16/20 04:25 Potassium 4.5 mmol/L (3.5-5.1) 10/16/20 04:25 BUN 41 mg/dL (7-18) H 10/16/20 04:25 Creatinine 1.76 mg/dL (0.55-1.3) H 10/16/20 04:25 Glucose 213 mg/dL (74-106) H 10/16/20 04:25 Uric Acid 8.3 mg/dL (2.6-6.0) H 10/16/20 04:25 Magnesium 2.6 mg/dL (1.8-2.4) H 10/16/20 04:25 Total Bilirubin 0.4 mg/dL (0.2-1.0) 10/16/20 04:25 AST 23 U/L (15-37) 10/16/20 04:25 ALT 23 U/L (12-78) 10/16/20 04:25 Alkaline Phosphatase 52 U/L (45-117) 10/16/20 04:25 Troponin I 0.28 ng/mL (0.0-0.045) H 10/16/20 14:25 Triglycerides 68 mg/dL (<150) 10/16/20 04:25 Cholesterol 150 mg/dL (<200) 10/16/20 04:25 HDL Cholesterol 53 mg/dL (40-60) 10/16/20 04:25 Cholesterol/HDL Ratio 2.83 10/16/20 04:25 Physician Discharge Instructions: Patient was admitted overnight for NSTEMI Initial troponin 0.19, repeat troponins 0.19 up to 0.28. Patient initially found to be in acute on chronic systolic heart failure, patient was given IV diuresis with Lasix and Gardner catheter was placed. Patient was diuresed, began breathing better, tolerated nasal cannula. Patient also with history of chronic kidney disease which remained stable. Patient was evaluated by cardiology during her hospitalization and found to have critical aortic stenosis, for this reason cardiology arrange for transfer to [facility] for intervention. At discharge patient was awake, alert, chest pain had improved measures in blood pressure documented 107/53, heart rate 62 temp to 98.3 respiratory rate 16 97% on 2 L per nasal cannula. Patient will need to continue chronic care at receiving facility. Diet: AHA Followup: Saba Brumfield DO [Primary Care Provider] - Time spent managing pt's care (in minutes): 55
--- NOTE | 2020-10-19 09:52 | ECHO ---
HEIGHT: 5 ft 4 in WEIGHT: 157 lb 0 oz DATE OF STUDY: 10/16/[address]: Eze Atwood NP 2-DIMENSIONAL: YES M.MODE: YES DOPPLER: YES COLOR FLOW: YES TDS: PORTABLE: DEFINITY: BUBBLE STUDY: DIAGNOSIS: CONGESTIVE HEART FAILURE CARDIAC HISTORY: CATHERIZATION: SURGERY: PROSTHETIC VALVE: PACEMAKER: MEASUREMENTS (cm) DIASTOLIC (NORMALS) SYSTOLIC (NORMALS) IVSd 1.3 (0.6-1.2) LA Diam 3.6 (1.9-4.0) LVEF 53% LVIDd 4.7 (3.5-5.7) LVIDs 3.4 (2.0-3.5) %FS 27% LVPWd 1.4 (0.6-1.2) Ao Diam 2.8 (2.0-3.7) 2 DIMENSIONAL ASSESSMENT: RIGHT ATRIUM: NORMAL LEFT ATRIUM: NORMAL RIGHT VENTRICLE: NORMAL LEFT VENTRICLE: NORMAL TRICUSPID VALVE: NORMAL MITRAL VALVE: NORMAL PULMONIC VALVE: NORMAL AORTIC VALVE: SEVERE AORTIC STENOSIS PERICARDIAL EFFUSION: NONE AORTIC ROOT: NORMAL LEFT VENTRICULAR WALL MOTION: NORMAL DOPPLER/COLOR FLOW: SEE BELOW COMMENTS: NORMAL LEFT VENTRTICULAR EJECTION FRACTION OF 55-60% WITH NORMAL WALL MOTION. SEVERELY CALCIFIED AORTIC VALVE WITH SEVERE AORTIC STENOSIS. SEVERE AORTIC VALVE STENOSIS, MEAN GRADIENT OF 85 mmHg. DIASTOLIC DYSFUNCTION. TECHNOLOGIST: MAXIM STERN
== END 2020-10-17 00:33 | disposition short-term general hospital (02) | DRG 280 ==
LOC: ER 20:42 → ERHOLD 22:41 → 2ND 10-16 18:03
PROVIDERS: ADMIT Family Medicine; ATTEND Family Medicine
DX: I21.4 Non-ST elevation (NSTEMI) myocardial infarction (principal); I50.23 Acute on chronic systolic (congestive) heart failure; I13.0 Hypertensive heart and chronic kidney disease with heart failure and stage 1 through stage 4 chronic kidney disease, or unspecified chronic kidney disease; E87.1 Hypo-osmolality and hyponatremia; N17.9 Acute kidney failure, unspecified; I35.0 Nonrheumatic aortic (valve) stenosis; N18.30 Chronic kidney disease, stage 3 unspecified; E11.22 Type 2 diabetes mellitus with diabetic chronic kidney disease; E78.5 Hyperlipidemia, unspecified; D63.8 Anemia in other chronic diseases classified elsewhere; Z88.8 Allergy status to other drugs, medicaments and biological substances; Z79.4 Long term (current) use of insulin; Z79.899 Other long term (current) drug therapy; Z20.822 Contact with and (suspected) exposure to COVID-19
CPT/HCPCS: 0240U; 36415; 51702; 71045; 76770; 80048; 80053; 80061; 80076; 81003; 81015; 82550; 82728; 82805; 82947; 83036; 83735; 83880; 84439; 84443; 84484; 84550; 85025; 85379; 85610; 86140; 87086; 87088; 93005; 93306; 94660; 94760; 96372; 96374; 99285; J1940

== ENCOUNTER → 2023-09-22 | Emergency (ER) | payer OTHER ==
[~2023-09-22] MED LIST: DIPHENHYDRAMINE 50 MG/ML VIAL ONE; METHYLPREDNISOLONE 125 MG INJ ONE
[2023-09-22 12:04] LABS: Absolute Lymphocytes (CBC) 1.5 K/uL (0.7-4.9); Hematocrit 28.6 % (36.0-45.0); Lymphocytes % 17.3 % (15.3-44.8); MCV 92.4 fL (80-100); MPV 6.7 fL (7.6-11.3); Platelets 170 thou/uL (152-406); RBC Red Blood Cell Count 3.09 M/uL (3.86-4.86)
[2023-09-22 12:23] LABS: Albumin 3.1 g/dL (3.4-5.0); Bilirubin Total 0.4 mg/dL (0.2-1.0); Potassium 5.1 mEq/L (3.5-5.1); Protein, Total 7.5 g/dL (6.4-8.2)
--- NOTE | 2023-09-22 12:36 | EDPHYS ---
Physician Documentation [facility] Name: Dillon Rodriguez Age: 73 yrs Sex: Female : 1950 Arrival Date: 09/22/2023 Time: 10:43 Bed 18 Private MD: ED Physician Alireza Farrell HPI: 09/22 11:54 This 73 yrs old Female presents to ER via Ambulatory with complaints of Facial sp3 Swelling, Itching. 11:54 73-year-old female with history of diabetes, hypertension now presents to the ED with sp3 chief complaint of facial erythema, itchiness for 2 to 3 days which is now progressed body wide especially with the pruritus. No known environmental allergens and no known food allergens ingested. Mild drainage from the right eye also reported. Patient denies any other symptoms including fever, URI symptoms, cough, headache, chest pain, shortness of breath, back pain, weakness, paresthesia, tick bites, travel history, known sick contacts, or any other aspect of ROS at this time.. Historical: - Allergies: 11:10 Fish Oil; hb - Home Meds: 11:10 Glipizide Oral [Active]; losartan Oral [Active]; Simvastatin Oral [Active]; Toujeo hb SoloStar subcutaneous [Active]; Tradjenta Oral [Active]; - PMHx: 11:10 Diabetes - IDDM; Anxiety; Hypertension; hb - Immunization history:: Adult Immunizations up to date. - Social history:: Smoking status: Patient denies any tobacco usage or history of. ROS: 11:55 Constitutional: Negative for fever, chills, and weight loss, Eyes: Negative for injury, sp3 pain, redness, and discharge, ENT: Negative for injury, pain, and discharge, Neck: Negative for injury, pain, and swelling, Cardiovascular: Negative for chest pain, palpitations, and edema, Respiratory: Negative for shortness of breath, cough, wheezing, and pleuritic chest pain, Abdomen/GI: Negative for abdominal pain, nausea, vomiting, diarrhea, and constipation, Back: Negative for injury and pain, MS/Extremity: Negative for injury and deformity, Neuro: Negative for headache, weakness, numbness, tingling, and seizure, Psych: Negative for depression, anxiety, suicide ideation, homicidal ideation, and hallucinations, Endocrine: Negative for neck swelling, polydipsia, polyuria, polyphagia, and marked weight changes, Hematologic/Lymphatic: Negative for swollen nodes, abnormal bleeding, and unusual bruising, 11:55 All other systems are negative, Exam: 11:56 Constitutional: This is a well developed, well nourished patient who is awake, alert, sp3 and in no acute distress. Eyes: Pupils equal round and reactive to light, extra-ocular motions intact. Lids and lashes normal. Conjunctiva and sclera are non-icteric and not injected. Cornea within normal limits. Periorbital areas with no swelling, redness, or edema. ENT: Nares patent. No nasal discharge, no septal abnormalities noted. External auditory canals are clear. Oropharynx with no redness, swelling, or masses, exudates, or evidence of obstruction, uvula midline. Mucous membranes moist. Neck: Trachea midline, no thyromegaly or masses palpated, and no cervical lymphadenopathy. Supple, full range of motion without nuchal rigidity, or vertebral point tenderness. No Meningismus. Chest/axilla: Normal chest wall appearance and motion. Nontender with no deformity. No lesions are appreciated. Cardiovascular: Regular rate and rhythm with a normal S1 and S2. No gallops, murmurs, or rubs. Normal PMI, no JVD. No pulse deficits. Respiratory: Lungs have equal breath sounds bilaterally, clear to auscultation and percussion. No rales, rhonchi or wheezes noted. No increased work of breathing, no retractions or nasal flaring. Abdomen/GI: Soft, non-tender, with normal bowel sounds. No distension or tympany. No guarding or rebound. No evidence of tenderness throughout. MS/ Extremity: Pulses equal, no cyanosis. Neurovascular intact. Full, normal range of motion. Neuro: Awake and alert, GCS 15, oriented to person, place, time, and situation. Cranial nerves II-XII grossly intact. Motor strength 5/5 in all extremities. Sensory grossly intact. Cerebellar exam normal. Normal gait. Psych: Awake, alert, with orientation to person, place and time. Behavior, mood, and affect are within normal limits. 11:56 Skin: Bilateral erythema on the face consistent with scratching motion. No other significant rash on the body.. 11:56 Neuro: Normal neurological exam in the ER. Patient reports family reports possible mild facial droop on the right side but not appreciated by me in the emergency department., Vital Signs: 11:07 BP 127 / 72; Pulse 72; Resp 16; Temp 99(TE); Pulse Ox 100% on R/A; Weight 71.21 kg; hb Height 5 ft. 4 in. ; Pain 0/10; 12:51 BP 124 / 71; Pulse 69; Resp 17; Pulse Ox 100% on R/A; me1 11:07 Body Mass Index 26.95 (71.21 kg, 162.56 cm) hb 11:07 Pain Scale: Adult hb MDM: 11:30 Patient medically screened. sp3 11:57 Data reviewed: vital signs, nurses notes, lab test result(s). ED course: 73-year-old sp3 female with probable allergen mediated reaction of her face and body. Her main complaint is pruritus. She has been taking OTC Benadryl which has helped minimally. Differential diagnosis includes allergy versus cellulitis versus other process. In terms of the reported facial droop which is not present currently, I am not suspicious for CVA/TIA spectrum. If this is a viral process consider Escalante's palsy however there is no facial droop present. I have advised family on what to look for for either of these processes. In terms of today, we will administer IV Benadryl and IV Solu-Medrol 125 mg and then discharge patient home on prednisone p.o. for symptomatic control. Laboratory values are pending and if normal we will discharge. I am not highly suspicious for infection or sepsis mediated process.. 12:33 ED course: Blood sugar elevated in creatinine at 1.8. WBC count is normal. Hemoglobin sp3 slightly low as well. I have communicated these findings to patient and family so they can follow-up with PCP. This does not change our management and we will discharge patient home on prednisone at this time. I am not highly suspicious for HUS spectrum. Patient is very well-appearing and in no acute distress. Medications have helped as well.. 09/22 11:34 Order name: CBC with Diff; Complete Time: 12:32 sp3 09/22 11:34 Order name: CMP; Complete Time: 12:32 sp3 09/22 11:34 Order name: IV Saline Lock; Complete Time: 12:00 sp3 09/22 11:34 Order name: Labs collected and sent; Complete Time: 12:00 sp3 Administered Medications: 12:00 Drug: diphenhydrAMINE IVP 12.5 mg IVP once Route: IVP; Site: right antecubital; ap3 12:44 Follow up: Response: No adverse reaction me1 12:00 Drug: MethylPrednisoLONE IVP 125 mg IVP once Route: IVP; Site: right antecubital; ap3 12:44 Follow up: Response: No adverse reaction me1 Disposition Summary: 09/22/23 12:35 Discharge Ordered Notes: Location: Home sp3 Condition: Stable sp3 Diagnosis - Allergic reaction, hyperglycemia, renal insufficiency sp3 Followup: sp3 - With: Private Physician - When: Upon discharge from the Emergency Department - Reason: Continuance of care Discharge Instructions: - Discharge Summary Sheet sp3 - Pruritus sp3 Forms: - Medication Reconciliation Form sp3 - Thank You Letter sp3 - Antibiotic Education sp3 - Prescription Opioid Use sp3 - Patient Portal Instructions sp3 - Leadership Thank You Letter sp3 Prescriptions: - Prednisone 20 mg Oral Tablet - take 2 tablets ORAL route once daily for 5 days; 10 tablet; Refills: 0, Product sp3 Selection Permitted Signatures: Dispatcher [employer] EDMS Merry Chapman RN RN Madeline Liang RN RN ap3 Alireza Farrell MD MD sp3 Zabrina Gonzalez RN me1 Corrections: (The following items were deleted from the chart) 12:34 12:33 ED course: Blood sugar elevated in creatinine at 1.8. WBC count is normal. sp3 Hemoglobin slightly low as well. I have communicated these findings to patient and family so they can follow-up with PCP. This does not change our management and we will discharge patient home on prednisone at this time.. sp3
--- NOTE | 2023-09-22 12:36 | ER ---
Nurse's Notes [facility] Name: Dillon Rodriguez Age: 73 yrs Sex: Female : 1950 Arrival Date: 09/22/2023 Time: 10:43 Bed 18 Private MD: Diagnosis: Allergic reaction, hyperglycemia, renal insufficiency Presentation: 09/22 11:07 Chief complaint: Facial redness and swelling x 5 days, itching all over since hb yesterday. Benadryl last administered last night. Coronavirus screen: At this time, the client does not indicate any symptoms associated with coronavirus-19. Ebola Screen: No symptoms or risks identified at this time. Onset: The symptoms/episode began/occurred 5 day(s) ago. Anaphylaxis evaluation, no signs or symptoms of anaphylaxis were noted. Initial Sepsis Screen: Does the patient meet any 2 criteria? No. Patient's initial sepsis screen is negative. Does the patient have a suspected source of infection? No. Patient's initial sepsis screen is negative. Risk Assessment: Do you want to hurt yourself or someone else? Patient reports no desire to harm self or others. Onset of symptoms was September 15, 2023. 11:07 Method Of Arrival: Ambulatory hb 11:07 Acuity: MARK 3 hb Historical: - Allergies: 11:10 Fish Oil; hb - Home Meds: 11:10 Glipizide Oral [Active]; losartan Oral [Active]; Simvastatin Oral [Active]; Toujeo hb SoloStar subcutaneous [Active]; Tradjenta Oral [Active]; - PMHx: 11:10 Diabetes - IDDM; Anxiety; Hypertension; hb - Immunization history:: Adult Immunizations up to date. - Social history:: Smoking status: Patient denies any tobacco usage or history of. Screenin:59 [facility] ED Fall Risk Assessment (Adult) History of falling in the last 3 months, ap3 including since admission No falls in past 3 months (0 pts). Abuse screen: Denies threats or abuse. Nutritional screening: No deficits noted. Tuberculosis screening: No symptoms or risk factors identified. Assessment: 11:58 General: Appears in no apparent distress. distressed, comfortable, Behavior is calm, ap3 cooperative, appropriate for age. Pain: Denies pain. Neuro: Level of Consciousness is awake, alert, obeys commands, Oriented to person, place, time, situation, Appropriate for age. Cardiovascular: Patient's skin is warm and dry. Respiratory: Airway is patent Respiratory effort is even, unlabored. 12:52 Respiratory: me1 Vital Signs: 11:07 BP 127 / 72; Pulse 72; Resp 16; Temp 99(TE); Pulse Ox 100% on R/A; Weight 71.21 kg; hb Height 5 ft. 4 in. ; Pain 0/10; 12:51 BP 124 / 71; Pulse 69; Resp 17; Pulse Ox 100% on R/A; me1 11:07 Body Mass Index 26.95 (71.21 kg, 162.56 cm) hb 11:07 Pain Scale: Adult hb ED Course: 10:44 Patient arrived in ED. rg4 11:01 Alireza Farrell MD is Attending Physician. sp3 11:09 Triage completed. hb 11:11 Arm band placed on. hb 11:59 Patient has correct armband on for positive identification. Call light in reach. Side ap3 rails up X 1. Adult w/ patient. Pulse ox on. 12:00 Inserted saline lock: 22 gauge in right antecubital area, using aseptic technique. ap3 Blood collected. 12:00 CBC with Diff Sent. ap3 12:00 CMP Sent. ap3 12:44 Zabrina Gonzalez, GERDA is Primary Nurse. me1 12:52 No provider procedures requiring assistance completed. IV discontinued, intact, me1 bleeding controlled, No redness/swelling at site. Pressure dressing applied. 12:55 Provided Education on: POC. Verbalized understanding. . me1 Administered Medications: 12:00 Drug: diphenhydrAMINE IVP 12.5 mg IVP once Route: IVP; Site: right antecubital; ap3 12:44 Follow up: Response: No adverse reaction me1 12:00 Drug: MethylPrednisoLONE IVP 125 mg IVP once Route: IVP; Site: right antecubital; ap3 12:44 Follow up: Response: No adverse reaction me1 Medication: 12:00 VIS not applicable for this client. ap3 Outcome: 12:35 Discharge ordered by . sp3 12:55 Discharged to home ambulatory, with family, me1 12:55 Condition: stable 12:55 Discharge instructions given to patient, family, Instructed on discharge instructions, follow up and referral plans. medication usage, Demonstrated understanding of instructions, follow-up care, medications, Prescriptions given X 1, 12:56 Patient left the ED. me1 Signatures: Merry Chapman RN RN Effie Hernández rg4 Madeline Liang RN RN ap3 Alireza Farrell MD MD sp3 Zabrina Gonzalez RN RN me1 Corrections: (The following items were deleted from the chart) 11:23 11:07 Acuity: MARK 4 hb hb
[2023-09-22 14:26] VITALS: BP 124/71; TEMP 99; O2SAT 100
== END ==
LOC: ER 10:43
DX: L50.9 Urticaria, unspecified (principal); E11.65 Type 2 diabetes mellitus with hyperglycemia; Z79.4 Long term (current) use of insulin; N28.9 Disorder of kidney and ureter, unspecified; I10 Essential (primary) hypertension; F41.9 Anxiety disorder, unspecified; Z91.013 Allergy to seafood
CPT/HCPCS: 85025; 36415; 80053; 96375; 96374; 99284; J1200; J2930